=== PATIENT | female | born 1945 | race Caucasian/White ===

== ENCOUNTER 2016-09-09 10:50 | Emergency (ER) | payer MEDICARE ==
[~2016-09-09] VITALS: Ht 163.8 cm; Wt 79.5 kg
[~2016-09-09 10:50] MED LIST: AMBIEN5 MG PO; ASPIRIN 8181 MG PO; BACTRIM DS1 TAB PO; CIPRO500 MG OR; CITALOPRAM10 MG PO; FLUARIX QUADRIV1 INJ IM; FLUCONAZOLE100 MG PO; FLUCONAZOLE150 MG PO; FREESTYLE LITE TEST; HUMALOG 751000 UNITS SC; HUMALOG KW75 MG/25 K SC; INSULIN SY SC; LEVEMIR1000 UNITS SC; LISINOPRIL10 MG PO; LOPID600 MG PO; MAGNESIUM-OX400 MG PO; MECLIZINE25 MG PO; METFORMIN850 MG OR; METFORMIN850 MG PO; MULT1 PO; OMEPRAZOLE20 MG PO; PEN NEEDLES31 GX6MM SC; POLYETH GLYC3350 NF PO; ZOLOFT50 MG OR; ZOLOFT50 MG PO
[2016-09-09] MEDS ORDERED: REQUIP4 MG PO (11:05)
[2016-09-09] MEDS ORDERED: METFORMIN500 MG PO (11:06)
[2016-09-09] MEDS ORDERED: PREDNISONE10 MG PO (11:45)
[2016-09-09] MEDS ORDERED: TESSALON PER100 MG PO (11:45)
[2016-09-09] MEDS ORDERED: VENTOLIN HF1 IN (11:45)
[2016-09-09] MEDS ORDERED: ZITHROMAX250 MG PO (11:45)
[2016-09-09 11:55] VITALS: BP 166/74
== END 2016-09-09 11:55 | disposition home or self-care (01) ==
LOC: ED 10:50
DX: J40 Bronchitis, not specified as acute or chronic (principal); R05 Cough; R09.89 Other specified symptoms and signs involving the circulatory and respiratory systems

== ENCOUNTER 2016-09-22 08:42 | Emergency (ER) | payer MEDICARE ==
[~2016-09-22] VITALS: Ht 163.8 cm; Wt 80.0 kg
[~2016-09-22 08:42] MED LIST changes: +METFORMIN500 MG PO; +PREDNISONE10 MG PO; +REQUIP4 MG PO; +TESSALON PER100 MG PO; +VENTOLIN HF1 IN; +ZITHROMAX250 MG PO
[2016-09-22 09:06] LABS: HEMATOCRIT 40.2 % (37.0-47.0); HEMOGLOBIN 13.1 g/dl (12.0-16.0); IMMATURE GRANULOCYTES 0.2 % (0.0-1.0); MEAN CELL VOLUME 94.1 fL CALC (80.0-100.0); MEAN CORPUSCULAR HGB 30.7 pG CALC (26.0-32.0); MEAN CORPUSCULAR HGB CONC 32.6 g/L CALC (32.0-36.0); NEUT# 4.05 thou/uL (2.00-7.15); RED BLOOD COUNT 4.27 mill/uL (4.20-5.60); RED CELL DISTRI WIDTH 13.3 % (11.5-15.5)
[2016-09-22 09:17] LABS: ALBUMIN 4.6 g/dL (3.2-5.0); ALKALINE PHOSPHATASE 63 u/l (38-126); AMYLASE 89 u/l (30-110); ANION GAP 22 (6-22 (CALC)); BILIRUBIN, TOTAL 0.9 mg/dL (0.0-1.4); BUN 16 mg/dL (8-23); BUN/CREATININE RATIO 19 (12-20 (CALC)); CALCIUM 10.5 mg/dL (8.4-10.2); CARBON DIOXIDE 20 mmol/l (22-30); CHLORIDE 105 mmol/l (95-108); CREATININE 0.8 mg/dL (0.5-1.0); GFR > 60 ML/MIN (>=60 (CALC)); GFR FOR AFR.AMER. > 60 ML/MIN (>=60 (CALC)); GLUCOSE 212 mg/dL (82-115); LIPASE 164 u/l (23-300); MAGNESIUM 1.6 mg/dL (1.6-2.3); POTASSIUM 4.6 mmol/l (3.5-5.1); SGOT/AST 25 u/l (9-36); SGPT/ALT 27 u/l (11-66); SODIUM 142 mmol/l (137-146); TOTAL PROTEIN 8.5 g/dL (6.3-8.2)
[2016-09-22 09:28] LABS: MYOGLOBIN 23 ng/mL (0 - 62)
[2016-09-22 09:29] LABS: PROTHROMBIN TIME 10.8 SECONDS (9.0-12.5)
[2016-09-22 11:14] VITALS: BP 118/73
== END 2016-09-22 11:20 | disposition home or self-care (01) ==
LOC: ED 08:42
PROVIDERS: Emergency Medicine
DX: I48.0 Paroxysmal atrial fibrillation (principal); R00.2 Palpitations; Z79.82 Long term (current) use of aspirin; R07.89 Other chest pain
CPT/HCPCS: J3475

== ENCOUNTER 2017-09-21 06:13 | Inpatient (IN) | payer MEDICARE ==
[2017-09-21] VITALS (20 sets, daily range): BP systolic 100–157; BP diastolic 57–82
[~2017-09-21] VITALS: Ht 165.1 cm; Wt 80.9 kg
[2017-09-21] MEDS ORDERED: METOPROL TAR25 MG PO (06:39)
[2017-09-21] MEDS ORDERED: WARFARIN4 MG PO (06:40)
[2017-09-21] MEDS ORDERED: MULTIVITAMI9 PO (06:41)
[2017-09-21 06:50] LABS: HEMATOCRIT 36.9 % (37.0-47.0); HEMOGLOBIN 11.6 g/dl (12.0-16.0); IMMATURE GRANULOCYTES 0.4 % (0.0-1.0); MEAN CELL VOLUME 95.3 fL CALC (80.0-100.0); MEAN CORPUSCULAR HGB CONC 31.4 g/L CALC (32.0-36.0); NEUT# 3.92 thou/uL (2.00-7.15); RED BLOOD COUNT 3.87 mill/uL (4.20-5.60); RED CELL DISTRI WIDTH 14.2 % (11.5-15.5)
[2017-09-21 07:00] LABS: ALBUMIN 4.3 g/dL (3.2-5.0); ALKALINE PHOSPHATASE 68 u/l (38-126); ANION GAP 19 (6-22 (CALC)); BILIRUBIN, TOTAL 0.7 mg/dL (0.0-1.4); BUN 12 mg/dL (8-23); BUN/CREATININE RATIO 17 (12-20 (CALC)); CARBON DIOXIDE 24 mmol/l (22-30); CHLORIDE 104 mmol/l (95-108); CREATININE 0.7 mg/dL (0.5-1.0); GFR > 60 ML/MIN (>=60 (CALC)); GFR FOR AFR.AMER. > 60 ML/MIN (>=60 (CALC)); POTASSIUM 4.4 mmol/l (3.5-5.1); SGOT/AST 23 u/l (9-36); SGPT/ALT 26 u/l (11-66); SODIUM 143 mmol/l (137-146); TOTAL PROTEIN 8.3 g/dL (6.3-8.2)
[2017-09-21 07:09] LABS: ACT PARTIAL THROMBO TIME 43.8 SECONDS (20.0-32.5)
[2017-09-21 07:10] LABS: PROTHROMBIN TIME 34.3 SECONDS (9.0-12.5)
[2017-09-21 07:12] LABS: MYOGLOBIN 31 ng/mL (0 - 62)
[2017-09-21 07:50] LABS: INFLUENZA A NONE DETECTED (NONE DETECT); INFLUENZA B NONE DETECTED (NONE DETECT)
[2017-09-21 07:59] LABS: URINE BILIRUBIN - DIPSTICK NEGATIVE (NEGATIVE); URINE BLOOD DIPSTICK NEGATIVE (NEGATIVE); URINE COLOR YELLOW; URINE GLUCOSE - DIPSTICK NEGATIVE (NEGATIVE); URINE KETONE NEGATIVE (NEGATIVE); URINE LEUK ESTERASE TRACE (NEGATIVE); URINE NITRITE - DIPSTICK NEGATIVE (Negative); URINE PROTEIN - DIPSTICK NEGATIVE (NEG-TRACE); URINE UROBILINOGEN - DIPSTICK 0.2 E.U./dL (0.2)
[2017-09-21 08:00] LABS: URINE CLARITY CLEAR
[2017-09-22] VITALS (16 sets, daily range): BP systolic 98–170; BP diastolic 53–105
[2017-09-22 09:15] LABS: INTERNATIONAL NORMALIZED RATIO 2.7 RATIO (0.7-1.3); PROTHROMBIN TIME 30.8 SECONDS (9.0-12.5)
[2017-09-23] VITALS: BP 134/96
[2017-09-23 02:00] VITALS: BP 129/81
[2017-09-23 04:00] VITALS: BP 150/80
[2017-09-23 04:32] LABS: HEMATOCRIT 36.8 % (37.0-47.0); HEMOGLOBIN 11.7 g/dl (12.0-16.0); MEAN CELL VOLUME 94.6 fL CALC (80.0-100.0); MEAN CORPUSCULAR HGB 30.1 pG CALC (26.0-32.0); MEAN CORPUSCULAR HGB CONC 31.8 g/L CALC (32.0-36.0); RED BLOOD COUNT 3.89 mill/uL (4.20-5.60); RED CELL DISTRI WIDTH 13.9 % (11.5-15.5)
[2017-09-23 04:44] LABS: ANION GAP 18 (6-22 (CALC)); BUN 13 mg/dL (8-23); BUN/CREATININE RATIO 21 (12-20 (CALC)); CARBON DIOXIDE 24 mmol/l (22-30); CHLORIDE 104 mmol/l (95-108); CREATININE 0.6 mg/dL (0.5-1.0); GFR > 60 ML/MIN (>=60 (CALC)); GFR FOR AFR.AMER. > 60 ML/MIN (>=60 (CALC)); POTASSIUM 3.9 mmol/l (3.5-5.1); SODIUM 142 mmol/l (137-146)
[2017-09-23 05:44] LABS: INTERNATIONAL NORMALIZED RATIO 1.6 RATIO (0.7-1.3); PROTHROMBIN TIME 18.5 SECONDS (9.0-12.5)
[2017-09-23 06:00] VITALS: BP 137/99
[2017-09-23 08:00] VITALS: BP 145/82
[2017-09-23] MEDS ORDERED: LOPRESSOR 550 MG/TAB PO (09:33)
[2017-09-23] MEDS ORDERED: DIGOXIN0.125 MG PO (09:33)
[2017-09-23] MEDS ORDERED: LASIX20 MG PO (09:33)
[2017-09-23 10:00] VITALS: BP 157/103
== END 2017-09-23 10:35 | disposition home or self-care (01) | DRG 308 ==
LOC: ED 06:13 → ED-I 08:40 → ED 08:52 → ICU 08:53
PROVIDERS: Emergency Medicine; Family Medicine; ADMIT Internal Medicine; ATTEND Internal Medicine
DX: I48.0 Paroxysmal atrial fibrillation (principal); I50.31 Acute diastolic (congestive) heart failure; E83.42 Hypomagnesemia; I65.23 Occlusion and stenosis of bilateral carotid arteries; I11.0 Hypertensive heart disease with heart failure; E11.9 Type 2 diabetes mellitus without complications; G25.81 Restless legs syndrome; G47.33 Obstructive sleep apnea (adult) (pediatric); E78.5 Hyperlipidemia, unspecified; Z87.11 Personal history of peptic ulcer disease; Z79.01 Long term (current) use of anticoagulants; Z90.2 Acquired absence of lung [part of]; Z79.4 Long term (current) use of insulin; Z82.49 Family history of ischemic heart disease and other diseases of the circulatory system; Z82.3 Family history of stroke
CPT/HCPCS: J1160; Q9967

== ENCOUNTER → 2018-09-02 | Outpatient (REF) | payer MEDICARE ==
[~2018-09-02] MED LIST changes: +DIGOXIN0.125 MG PO; +LASIX20 MG PO; +LOPRESSOR 550 MG/TAB PO; +METOPROL TAR25 MG PO; +MULTIVITAMI9 PO; +WARFARIN4 MG PO
[2018-09-02 11:06] LABS: HEMATOCRIT 35.6 % (37.0-47.0); HEMOGLOBIN 11.2 g/dl (12.0-16.0); MEAN CELL VOLUME 93.9 fL CALC (80.0-100.0); MEAN CORPUSCULAR HGB 29.6 pG CALC (26.0-32.0); MEAN CORPUSCULAR HGB CONC 31.5 g/L CALC (32.0-36.0); RED BLOOD COUNT 3.79 mill/uL (4.20-5.60); RED CELL DISTRI WIDTH 14.4 % (11.5-15.5)
[2018-09-02 11:43] LABS: ALBUMIN 4.3 g/dL (3.2-5.0); ALKALINE PHOSPHATASE 65 u/l (38-126); ANION GAP 14 (6-22 (CALC)); BILIRUBIN, TOTAL 0.6 mg/dL (0.0-1.4); BUN 11 mg/dL (8-23); BUN/CREATININE RATIO 16 (12-20 (CALC)); CALCULATED LDLCHOLESTEROL 152 mg/dL (62-129 (CALC)); CARBON DIOXIDE 27 mmol/l (22-30); CHLORIDE 102 mmol/l (95-108); CHOLESTEROL HDL RATIO 5.8 (<4.4 (CALC)); CREATININE 0.7 mg/dL (0.5-1.0); GFR > 60 ML/MIN (>=60 (CALC)); GFR FOR AFR.AMER. > 60 ML/MIN (>=60 (CALC)); HDL CHOLESTEROL 47 mg/dL (>=40); POTASSIUM 4.5 mmol/l (3.5-5.1); SGOT/AST 32 u/l (9-36); SODIUM 139 mmol/l (137-146); TOTAL CHOLESTEROL 277 mg/dl (0-199); TOTAL PROTEIN 7.5 g/dL (6.3-8.2); TOTAL TRIGLYCERIDES 387 mg/dl (30-149); VLDL CHOLESTROL 77 mg/dl (0-48 (CALC))
[2018-09-02 12:08] LABS: TSH, 3RD GENERATION 2.72 uIU/mL (0.47 - 4.68)
== END | disposition home or self-care (01) ==
LOC: LAB 10:53
PROVIDERS: ATTEND Internal Medicine
DX: I10 Essential (primary) hypertension (principal); E03.9 Hypothyroidism, unspecified; R53.83 Other fatigue; I50.22 Chronic systolic (congestive) heart failure; E11.65 Type 2 diabetes mellitus with hyperglycemia; E55.9 Vitamin D deficiency, unspecified; E78.49 Other hyperlipidemia

== ENCOUNTER 2019-04-01 10:44 | Emergency (ER) | payer MEDICARE ==
[~2019-04-01] VITALS: Ht 165.1 cm; Wt 82.0 kg
[~2019-04-01 10:44] MED LIST changes: -LEVEMIR1000 UNITS SC; -METFORMIN500 MG PO; -MULTIVITAMI9 PO; -REQUIP4 MG PO; -WARFARIN4 MG PO
[2019-04-01] MEDS ORDERED: LEVEMIR FL100 UNIT/M SC (12:31)
[2019-04-01] MEDS ORDERED: WARFARIN4 MG PO (12:32)
[2019-04-01] MEDS ORDERED: METFORMIN500 MG PO (12:32)
[2019-04-01] MEDS ORDERED: MULTIVITAMI9 PO (12:32)
[2019-04-01] MEDS ORDERED: ROPINIROLE HYDRO3 MG PO (12:32)
[2019-04-01] MEDS ORDERED: PRILOSEC20 MG/CAP PO (12:33)
[2019-04-01] MEDS ORDERED: MAGNESIUM250 M1 PO (12:33)
[2019-04-01 12:35] VITALS: BP 139/74
== END 2019-04-01 12:35 | disposition home or self-care (01) ==
LOC: ED 10:44
DX: S63.91XA Sprain of unspecified part of right wrist and hand, initial encounter (principal); S60.221A Contusion of right hand, initial encounter; E11.9 Type 2 diabetes mellitus without complications; W01.0XXA Fall on same level from slipping, tripping and stumbling without subsequent striking against object, initial encounter; Y93.89 Activity, other specified; Y92.410 Unspecified street and highway as the place of occurrence of the external cause; Z79.4 Long term (current) use of insulin